=== PATIENT | male | born 1995 | race Caucasian/White ===

== ENCOUNTER 2021-05-22 23:58 | Emergency (ER) | payer BC, OTHER ==
[2021-05-23] MEDS ORDERED: Ibuprofen 600 MG Tab PO ONE (00:11)
== END 2021-05-23 00:38 | disposition home or self-care (01) ==
LOC: MW.ED 23:58
DX: S99.921A Unspecified injury of right foot, initial encounter (principal); X58.XXXA Exposure to other specified factors, initial encounter
CPT/HCPCS: 73620; 99283; A9270